=== PATIENT | male | born 1965 | race Caucasian/White ===

== ENCOUNTER 2017-06-28 16:38 | Emergency (ER) | payer OTHER ==
[~2017-06-28] VITALS: Wt 78.3 kg
--- NOTE | 2017-06-28 20:13 | ERD ---
ER Documentation Chief Complaint Chief Complaint BACK PAIN, BODYACHES HPI This 52-year-old male presents here to emergency department for complaints of chronic back pain, patient has run out of these medications for his back, patient fell again landed on the back one week ago, the back has been more hurting, worse at night. Patient describes pain as throbbing pain,6/10 scale, as was upon movement. Patient does complain of muscle spasms in the back. Patient denies any incontinence. Patient has history of multiple back surgeries. Patient is seeing pain specialist but has not been able to make an appointment yet. Currently patient takes tramadol for pain with only mild relief. ROS All systems reviewed and are negative except as per history of present illness. Medications Home Meds Reported Medications [none] Unknown Strength No Conflict Check 06/28/17 Allergies Allergies: Coded Allergies: No Known Allergy (Unverified , 06/28/17) PMhx/Soc Medical and Surgical Hx: pt denies Medical Hx, pt denies Surgical Hx FmHx Family History: No coronary disease, No diabetes, No other Physical Exam Vitals Vital Signs Date Time Temp Pulse Resp B/P Pulse Ox O2 Delivery O2 Flow Rate FiO2 06/28/17 17:06 98.1 81 18 121/59 97 Physical Exam GENERAL: The patient is well developed and appropriate for usual state of health, in no apparent distress. CHEST: Clear to auscultation bilaterally. There are no rales, wheezes or rhonchi. HEART: Regular rate and rhythm. No murmurs, clicks, rubs or gallops. No S3 or S4. ABDOMEN: Soft, nontender and nondistended. Good bowel sounds. No rebound or guarding. No gross peritonitis. No gross organomegaly or masses. No Espinoza sign or McBurney point tenderness. BACK: No midline or flank tenderness. Muscle spasms noted in the paraspinal aspect of the lumbar spine. Able to do full range EXTREMITIES: Equal pulses bilaterally. There is no peripheral clubbing, cyanosis or edema. No focal swelling or erythema. Full range of motion. Grossly neurovascularly intact. NEURO: Alert and oriented. Cranial nerves 2-12 intact. Motor strength in all 4 extremities with 5/5 strength. Sensation grossly intact. Normal speech and gait. SKIN: There is no apparent rash or petechia. The skin is warm and dry. HEMATOLOGIC AND LYMPHATIC: There is no evidence of excessive bruising or lymphedema. No gross cervical, axillary, or inguinal lymphadenopathy. Results 24 hrs Current Medications Medications (Trade) Dose Ordered Sig/Mery Route PRN Reason Start Time Stop Time Status Last Admin Dose Admin Oxycodone/ Acetaminophen (Endocet (10/ 325)) 1 tab ONCE ONCE PO 06/28/17 20:30 06/28/17 20:31 DC 06/28/17 20:13 Patient was given medication for pain here in emergency department, after treatment, patient verbalized feeling much better. Patient's pain is improved. PROCEDURE: CT lumbar spine without contrast CLINICAL INDICATION: Back pain. TECHNIQUE: A CT scan of the lumbar spine was performed without intravenous contrast. Coronal and sagittal reformatted images were generated. DICOM images are available. CTDIvol: 16.10 mGy. DLP: 500.51 mGy-cm. One or more of the following dose reduction techniques were used: - Automated exposure control. - Adjustment of the mA and/or kV according to patient size. - Use of iterative reconstruction technique. COMPARISON: None. FINDINGS: The lumbar lordosis is preserved without spondylolisthesis. The vertebral body heights are maintained. Bone mineralization is normal and there is no suspicious osseous lesion. No fracture or subluxation is identified. A dorsal column stimulator lead enters the spinal canal at the L1-L2 level and courses cranially. T12-L1 through L2-L3: There is no significant degenerative change. No spinal canal stenosis or neural foraminal narrowing is seen. L3-L4: There is mild spinal canal stenosis secondary to minimal disc bulging and congenitally short pedicles. Moderate to severe bilateral neural foraminal narrowing due to disc bulging and endplate osteophytosis. L4-L5: The patient status post discectomy and posterior fusion at this level. There is no spinal canal stenosis or significant neural foraminal narrowing. L5-S1: The patient status post discectomy and posterior fusion at this level. There is no spinal canal stenosis. Mild bilateral neural foraminal narrowing is noted due to endplate osteophytosis. There is a 3 mm nonobstructing right renal stone. IMPRESSION: 1. Status post discectomy and posterior fusion at L4-L5 and L5-S1. 2. Mild spinal canal stenosis and moderate to severe bilateral neural foraminal narrowings at L3-L4. 3. Dorsal column stimulator lead in place. 4. 3 mm nonobstructing right renal stone. RPTAT: HTAR .Sunny Lai MD, Date Time Electronically viewed and signed by .Sunny Lai MD, on 06/28/2017 21:44 .R/ CC: ANA HERNANDEZ [facility] UNDERWRITER Procedures/MDM Medical Decision Making: Patient's pain is most likely consistent with a back straincontusion which is aggravated by degenerative disc disease and chronic back pain..There is no suspicion for neurovascular compromise. Patient has intact sensation and circulation of the affected extremity and distal extremities. No incontinence, no suspicion for cauda equina syndrome, no saddle anesthesia, no symptoms of any acute bacterial infection, no symptoms of any perirectal abscesses, pilonidal cyst.There is low suspicion for septic arthritis. Patient does not have any fever. No symptoms of any aortic dissection or aortic aneurysm. Radiology exam does not show any fractures or dislocation. Disposition: Home. Patient is given prescription for ibuprofen for mild to moderate pain, Percocet for severe pain, Flexeril for muscle spasm. Patient was advised to avoid heavy lifting , apply warm compresses on affected area. Patient was advised that if symptoms are worse, numbness, tingling, high fever, unable to move joint, worsening symptoms, to return to emergency department immediately. Otherwise, patient is advised to follow up with the primary care doctor in 5-7 days for reevaluation of symptoms. Disclaimer: Inadvertent spelling and grammatical errors are likely due to EHR/ dictation software use and do not reflect on the overall quality of patient care. Also, please note that the electronic time recorded on this note does not necessarily reflect the actual time of the patient encounter. Departure Diagnosis: Primary Impression: Back pain Back pain location: low back pain Chronicity: chronic Back pain laterality : bilateral Sciatica presence: without sciatica Qualified Code: M54.5 - Chronic bilateral low back pain without sciatica Condition: Stable Patient Instructions: Back Pain (Acute Or Chronic) Additional Instructions: Patient is given prescription for ibuprofen for mild to moderate pain, Percocet for severe pain, Flexeril for muscle spasm. Patient was advised to avoid heavy lifting , apply warm compresses on affected area. Patient was advised that if symptoms are worse, numbness, tingling, high fever, unable to move joint, worsening symptoms, to return to emergency department immediately. Otherwise, patient is advised to follow up with the primary care doctor in 5-7 days for reevaluation of symptoms. ANA HERNANDEZ NP Jun 28, 2017 20:13
[2017-06-28] MEDS ORDERED: OXYCODONE/ACETAMINOPHEN (10/325) TAB PO ONE (20:30)
--- NOTE | 2017-06-28 21:44 | RADRPT ---
PROCEDURE: CT lumbar spine without contrast CLINICAL INDICATION: Back pain. TECHNIQUE: A CT scan of the lumbar spine was performed without intravenous contrast. Coronal and s agittal reformatted images were generated. DICOM images are available. CTDIvol: 16.10 mGy. DLP: 500. 51 mGy-cm. One or more of the following dose reduction techniques were used: - Automated exposure control. - Adjustment of the mA and/or kV according to patient size. - Use of iterative reconstruction technique. COMPARISON: None. FINDINGS: The lumbar lordosis is preserved without spondylolisthesis. The vertebral body heights are maintain ed. Bone mineralization is normal and there is no suspicious osseous lesion. No fracture or sublux ation is identified. A dorsal column stimulator lead enters the spinal canal at the L1-L2 level and courses cranially. T12-L1 through L2-L3: There is no significant degenerative change. No spinal canal stenosis or neur al foraminal narrowing is seen. L3-L4: There is mild spinal canal stenosis secondary to minimal disc bulging and congenitally short pedicles. Moderate to severe bilateral neural foraminal narrowing due to disc bulging and endplate o steophytosis. L4-L5: The patient status post discectomy and posterior fusion at this level. There is no spinal can al stenosis or significant neural foraminal narrowing. L5-S1: The patient status post discectomy and posterior fusion at this level. There is no spinal can al stenosis. Mild bilateral neural foraminal narrowing is noted due to endplate osteophytosis. There is a 3 mm nonobstructing right renal stone. IMPRESSION: 1. Status post discectomy and posterior fusion at L4-L5 and L5-S1. 2. Mild spinal canal stenosis and moderate to severe bilateral neural foraminal narrowings at L3-L4 . 3. Dorsal column stimulator lead in place. 4. 3 mm nonobstructing right renal stone. RPTAT: HTAR .Sunny Lai MD, Date Time Electronically viewed and signed by .Sunny Lai MD, MD on 06/28/2017 21:44 .R/
[2017-06-28] MEDS ORDERED: OXYC-209 PO (21:56)
[2017-06-28] MEDS ORDERED: IBUP-1542 PO (21:56)
[2017-06-28] MEDS ORDERED: CYCL-319 PO (21:56)
[2017-06-28 22:05] VITALS: BP 120/58; PULSE 75; RESP 16
== END 2017-06-28 22:07 | disposition home or self-care (01) ==
LOC: FTE 16:38
DX: M54.5 Low back pain (principal)
CPT/HCPCS: 72131